=== PATIENT | female | born 1995 | race Two or more races ===

== ENCOUNTER 2016-06-17 06:53 | Inpatient (IN) | payer MEDICAID ==
[2016-06-17 07:26] VITALS: BMI 30.7
[2016-06-17] MEDS ORDERED: OXYTOCIN IN LR 500 ML IV ONE ×2 (07:38→07:52)
[2016-06-17] MEDS ORDERED: SODIUM CHLORIDE 0.9% FLUSH 10 ML ONE (07:52)
[2016-06-17] MEDS ORDERED: OXYTOCIN 10 UNITS/ML VIAL ONE (07:52)
[2016-06-17] MEDS ORDERED: PUMP TUBING ONE (07:52)
[2016-06-17] MEDS ORDERED: MINERAL OIL 25 ML BOT ONE (07:52)
[2016-06-17] MEDS ORDERED: IV START KIT ONE (07:52)
[2016-06-17] MEDS ORDERED: LIDOCAINE Viscous 2% 15 ML UDCUP ONE (07:52)
[2016-06-17] MEDS ORDERED: LIDOCAINE 1% (PRES FREE) 30 ML VIAL ONE (07:52)
[2016-06-17 08:10] LABS: AMPHETAMINES/METHAMPHETAMINES NEGATIVE (NEGATIVE); COCAINE NEGATIVE (NEGATIVE); MARIJUANA NEGATIVE (NEGATIVE); METHADONE NEGATIVE (NEGATIVE); OPIATES NEGATIVE (NEGATIVE); TRICYCLIC ANTIDEPRESSANTS NEGATIVE (NEGATIVE)
[2016-06-17 08:29] LABS: HEMATOCRIT 35.2 % (37.0-47.0); HEMOGLOBIN 11.7 gm/l (12.0-16.0); MEAN CELL VOLUME 80.5 fl (81.0-99.0); MEAN CORPUSCULAR HEMOGLOBIN 26.8 pg (27.0-31.0); MEAN CORPUSCULAR HGB CONC 33.2 g/dl (33.0-37.0); RED CELL DISTRIBUTION WIDTH 13.6 % (11.5-14.5)
[2016-06-17] MEDS: LACTATED RINGERS 1,000 ML IV SCH ×3 (09:00→11:15)
--- NOTE | 2016-06-17 09:03 | PCMAN ---
OB Admission Note - History : 2 Term: 1 : 0 Abortions (S&E): 0 Livin Gestational Age (weeks): 39 Days (#/7): 4 Admit Cervical Dilation:: 4 Admit Cervical Effacement (%):: 80 Admit Station:: -1 Admit Presentaton:: vertex Membrane Status: Intact Labor Onset (Date): 06/17/16 Labor Onset (Time): 04:00 Contractions: Yes Contraction Frequency:: 3-4 Heart Rate:: 140 Status:: reassuring cat 1 Summary of Course:: She has had uncomplicated . No problems. had cholestasis with previous past ob hx: 37 week , cholestasis, 2.8 kg - Labs Blood Type: O (+) positive Hct/Hgb:: Rubella Status: Immune GBS Status: Negative Abnormal Labs: None - Physical Exam General: Afebrile Neurological: Alert Lungs: Clear to Auscultation Bilaterally Cardiovascular: Regular Rate and Rhythm Abdomen: Normal Bowel Sounds Genitourinary: Normal Female Genitalia Rectal Exam: Deferred Skin: Normal Color - Problems (1) Active labor at term Status: Acute Code: [id number] Assessment/Plan: admit expectant management fwb overall reassuring cat 1
[2016-06-17] MEDS ORDERED: FENTANYL/ROPIVACAINE EPIDURAL 250 ML EP ONE (09:21)
[2016-06-17] MEDS ORDERED: EPIDURAL PUMP SET ONE (09:21)
[2016-06-17] MEDS ORDERED: LACTATED RINGERS 1,000 ML ONE ×2 (09:22→09:58)
[2016-06-17] MEDS ORDERED: SODIUM CHLORIDE 0.9% 500 ML IV PRN (10:30)
[2016-06-17] MEDS ORDERED: DIPHENHYDRAMINE HCL 50 MG/1 ML VIAL IV PRN (10:30)
[2016-06-17] MEDS ORDERED: LACTATED RINGERS 500 ML IV PRN (10:30)
[2016-06-17] MEDS ORDERED: ONDANSETRON 4 MG/2ML 2 ML VIAL IV PRN (10:30)
[2016-06-17] MEDS ORDERED: NALBUPHINE HCL 20 MG/ML AMP IV PRN (10:30)
[2016-06-17] MEDS ORDERED: METOCLOPRAMIDE HCL 5 MG/ML 2ML VIAL IV PRN (10:30)
[2016-06-17] MEDS ORDERED: FENTANYL/ROPIVACAINE EPIDURAL 250 ML EP SCH (10:30)
[2016-06-17] MEDS ORDERED: EPHEDRINE SULFATE 50 MG/ML 1ML VIAL IV PRN (10:30)
[2016-06-17] MEDS ORDERED: NALOXONE HCL 0.4 MG/ML VIAL IV PRN (10:30)
[2016-06-17] MEDS ORDERED: ROPIVACAINE 0.5% 30 ML VIAL ONE (10:34)
[2016-06-17] MEDS ORDERED: EPIDURAL PROCEDURE TRAY ONE (10:34)
--- NOTE | 2016-06-17 10:46 | PDOC36 ---
Provider Note Subject: comfortable now with epidural Note: vss af [id number]'s mod stv, and ltv and accels, no decels cat 1 toco" q 4 min SVE 6-7/80/-1 A/P: IUP at 39 weeks active labor epidural in place progressing FWB overall reassuring cat 1
[2016-06-17] MEDS ORDERED: DOCUSATE SODIUM 100 MG CAPSULE PO PRN (13:06)
[2016-06-17] MEDS ORDERED: HYDROCODONE/ACETAMINOPHEN 5/325MG TABLET PO PRN (13:06)
[2016-06-17] MEDS ORDERED: BENZOCAINE/MENTHOL 60 APPLIC/BOT TP PRN (13:06)
[2016-06-17] MEDS ORDERED: LANOLIN 50 APPLIC/7G TUBE TP PRN (13:06)
[2016-06-17] MEDS ORDERED: MINERAL OIL 25 ML BOT TP ONE (13:08)
--- NOTE | 2016-06-17 13:09 | PCMDEL ---
Delivery Note - Labor 1st stage (hr/min):: 8 hours 4 min 2nd stage (hr/min):: 40 min 3rd stage (hr/min):: 5 min Total (hr/min):: 8 hours 49 min Pushed (hr/min):: 40 min - Delivery Delivery (Date): 06/17/16 Delivery (Time): 12:44 Gender: Female Presentation: Cephalic Umbilical Cord: 3 Vessel Delayed Cord Clamping:: > 3 min 1 Minute Total: 9 5 Minute Total: 9 Placenta:: normal Perineum:: intact, small 1 degree vaginal lac repaired with 3.0 vicryl Suture:: 3.0 vicryl Anesthesia/Meds:: epidural Length ROM:: 2 hours Comments:: vigorous female, no complications
[2016-06-17] MEDS: IBUPROFEN 800 MG TABLET PO PRN (22:30)
[2016-06-18 06:02] LABS: HEMATOCRIT 34.7 % (37.0-47.0); HEMOGLOBIN 11.2 gm/l (12.0-16.0)
--- NOTE | 2016-06-18 08:19 | PDOC44 ---
- Subjective Reports Pain Tolerable - Objective Temp Pulse Resp BP Pulse Ox 97.9 F 83 17 106/58 06/17/16 19:34 06/18/16 02:50 06/18/16 02:50 06/18/16 02:50 Lab Results 06/18/16 06/17/16 05:10 08:10 WBC 10.3 RBC 4.37 Hgb 11.2 L 11.7 L Hct 34.7 L 35.2 L Plt Count 300 06/17/16 08:10 MCV 80.5 L MCH 26.8 L Current Medications Generic Name Dose Route Start Last Admin Trade Name Freq PRN Reason Stop Dose Admin Acetaminophen/Hydrocodone Bitart 1 - 2 tab 06/17/16 13:06 [place] 5/325 PO Q4H PRN Pain (Moderate) Benzocaine/Menthol 1 applic 06/17/16 13:06 Dermoplast TP PRN PRN Patient Comfort Docusate Sodium 100 mg 06/17/16 13:06 Colace PO DAILY PRN Comfort Emollient Ointment 1 applic 06/17/16 13:06 [id number] TP PRN PRN sore nipples Ibuprofen 800 mg 06/17/16 13:06 06/17/16 22:30 Motrin PO 800 mg Q6H PRN Administration Pain (Mild) Sodium Chloride 10 ml 06/17/16 13:06 06/17/16 17:13 Normal Saline 10ml Flush IV 10 ml PRN PRN Administration IV Flush - Physical Exam General: Afebrile Psych/Mental Status: Mood/Affect Appropriate, Judgment/Insight Intact Lungs: Clear to Auscultation Bilaterally Cardiovascular: Regular Rate and Rhythm Fundus: Firm, Below Umbilicus Abdomen: Normal Bowel Sounds Skin: Normal Color - Problems:Assessment/Plan (1) Vaginal delivery Status: Acute Assessment/Plan: Doing well Normal Exam Continue routine care
[2016-06-18] MEDS: IBUPROFEN 800 MG TABLET PO PRN ×2 (09:12→17:41)
[2016-06-19] MEDS: IBUPROFEN 800 MG TABLET PO PRN (03:19)
[2016-06-19 07:29] VITALS: BP 107/56
--- NOTE | 2016-06-19 08:08 | PDOC44 ---
- Subjective Day: 2 Patient doing well. Ready for discharge home today. States BF going well. Lochia minimal. Tolerating PO. Pain controlled with meds. Denies dizziness with ambulation. Reports Pain Tolerable, Reports , Reports Lochia Light, Reports Tolerating Regular Diet, Denies Nausea, Denies Vomiting - Objective Temp Pulse Resp BP Pulse Ox 98.4 F 74 16 107/56 06/19/16 07:27 06/19/16 07:27 06/19/16 07:27 06/19/16 07:27 Current Medications Generic Name Dose Route Start Last Admin Trade Name Freq PRN Reason Stop Dose Admin Acetaminophen/Hydrocodone Bitart 1 - 2 tab 06/17/16 13:06 [place] 5/325 PO Q4H PRN Pain (Moderate) Benzocaine/Menthol 1 applic 06/17/16 13:06 Dermoplast TP PRN PRN Patient Comfort Docusate Sodium 100 mg 06/17/16 13:06 06/18/16 09:12 Colace PO 100 mg DAILY PRN Administration Comfort Emollient Ointment 1 applic 06/17/16 13:06 06/18/16 09:12 [id number] TP 1 tube PRN PRN Administration sore nipples Ibuprofen 800 mg 06/17/16 13:06 06/19/16 03:19 Motrin PO 800 mg Q6H PRN Administration Pain (Mild) Sodium Chloride 10 ml 06/17/16 13:06 06/17/16 17:13 Normal Saline 10ml Flush IV 10 ml PRN PRN Administration IV Flush - Physical Exam General: Afebrile, No Acute Distress Psych/Mental Status: Mood/Affect Appropriate, Bonding Well Neurological: Alert, Normal Speech Lungs: Clear to Auscultation Bilaterally, Normal Air Movement Cardiovascular: Regular Rate and Rhythm, Normal S1, Normal S2 Breast: Nipples Intact Fundus: Firm, Midline Extremities: Full ROM, No Edema, No Tenderness Skin: Normal Color, Warm, Dry, Intact, No Rash - Problems:Assessment/Plan (1) Vaginal delivery Status: Acute Assessment/Plan: Doing well Normal Exam Ready for Discharge Will follow up with PCP in 6 weeks. Disposition: Stable, Anticipate DC to Home
[2016-06-19] MEDS ORDERED: LACTATED RINGERS 1,000 ML ONE (12:58)
== END 2016-06-19 10:10 | disposition home or self-care (01) | DRG 775 ==
LOC: FBCOUT 06:53 → FBC 06:53 → FBCOUT 07:39 → FBC 07:39
PROVIDERS: ADMIT Family Medicine; ATTEND Family Medicine
PROC: 10E0XZZ Delivery of Products of Conception, External Approach (ICD-10-PCS; principal; 2016-06-17)
PROC: 0HQ9XZZ Repair Perineum Skin, External Approach (ICD-10-PCS; 2016-06-17)
PROC: 00HU33Z Insertion of Infusion Device into Spinal Canal, Percutaneous Approach (ICD-10-PCS; 2016-06-17)
DX: O70.0 First degree perineal laceration during delivery (principal); Z3A.39 39 weeks gestation of pregnancy; Z37.0 Single live birth

== ENCOUNTER 2016-06-22 10:56 | Outpatient (CLI) | payer MEDICAID | END 2016-06-22 10:57 | disposition home or self-care (01) | LOC: BABIESSH 10:56 | PROVIDERS: ATTEND Family Medicine | DX: Z39.1 Encounter for care and examination of lactating mother (principal) ==

== ENCOUNTER 2016-07-03 16:02 | Outpatient (CLI) | payer MEDICAID | END 2016-07-03 16:03 | disposition home or self-care (01) | LOC: BABIESSH 16:02 | PROVIDERS: ATTEND Family Medicine | DX: Z39.1 Encounter for care and examination of lactating mother (principal) ==